=== PATIENT | male | born 1975 | race African-American/Black ===

== ENCOUNTER 2019-08-02 09:28 | Emergency (ER) | payer SELFPAY ==
--- NOTE | 2019-08-02 09:56 | EDM.PDOC ---
ED HPI GENERAL MEDICAL PROBLEM - General Chief Complaint: Chest Pain Stated Complaint: CHEST PRESSURE Time Seen by Provider: 08/02/19 09:30 Source of Information: Reports: Patient History Limitations: Reports: No Limitations - History of Present Illness INITIAL COMMENTS - FREE TEXT/NARRATIVE: 43-year-old male with vague chest pressure, migrating pain and pressure in the shoulders and legs and a mild headache. It's been going on for the last 24 hours and he became very anxious and concerned about his heart. He does have anxiety. No fevers or chills, no nausea or vomiting, no shortness of breath. Onset: Gradual Duration: Day(s): (1-2 days) Location: Reports: Generalized Left Chest Pain Score (Numeric/FACES): 5 - Related Data Allergies Allergy/AdvReac Type Severity Reaction Status Date / Time No Known Allergies Allergy Verified 08/02/19 09:37 Home Meds: Home Meds FLUoxetine HCl [Fluoxetine HCl] 1 tab PO DAILY 08/02/19 [History] Past Medical History HEENT History: Reports: Impaired Vision Cardiovascular History: Reports: Hypertension Respiratory History: Reports: Sleep Apnea Psychiatric History: Reports: Anxiety, Depression Social & Family History - Tobacco Use Smoking Status *Q: Light Tobacco Smoker Years of Tobacco use: 15 Packs/Tins Daily: 0.5 - Recreational Drug Use Recreational Drug Use: Yes Recreational Drug Type: Reports: Marijuana/Hashish Recreational Drug Use Frequency: Weekly ED ROS GENERAL - Review of Systems Review Of Systems: See Below Constitutional: Reports: Malaise. Denies: Fever, Chills Respiratory: Denies: Shortness of Breath Cardiovascular: Reports: Chest Pain (Mild pressure) GI/Abdominal: Denies: Nausea, Vomiting Musculoskeletal: Reports: Other (Generalized aching and pressure in his muscles) Neurological: Reports: Headache (Mild headache yesterday none today) ED EXAM, GENERAL - Physical Exam Exam: See Below Exam Limited By: No Limitations General Appearance: Alert, No Apparent Distress, Anxious Head: Atraumatic Neck: Supple Respiratory/Chest: No Respiratory Distress, Lungs Clear Cardiovascular: Regular Rate, Rhythm. No: Extra Beats GI/Abdominal: Soft, Non-Tender Extremities: Normal Inspection Neurological: Alert, Oriented Psychiatric: Normal Affect, Normal Mood Skin Exam: Warm, Dry EKG INTERPRETATION Rhythm: NSR Course - Vital Signs Last Recorded V/S: Last Vital Signs Temp 95.2 F L 08/02/19 09:34 Pulse 75 08/02/19 09:34 Resp 20 08/02/19 09:34 BP 150/79 H 08/02/19 09:34 Pulse Ox 96 08/02/19 09:34 - Orders/Labs/Meds Orders: Active Orders 24 hr Category Date Time Status EKG Documentation Completion [RC] ASDIRECTED Care 08/02/19 09:49 Active EKG 12 Lead [EK] Routine Ther 08/02/19 09:49 Ordered - Re-Assessments/Exams Free Text/Narrative Re-Assessment/Exam: 08/02/19 09:58 EKG was normal. Discussed with the patient some labs that should be obtained such as troponin and CBC but after the EKG was normal he was reassured and insisted on leaving. He will return if his symptoms are worsening. Departure - Departure Time of Disposition: 10:07 Disposition: Home, Self-Care 01 Clinical Impression: Atypical chest pain - Discharge Information Instructions: Nonspecific Chest Pain Referrals: PCP,None [Primary Care Provider] - Forms: ED Department Discharge Care Plan Goals: Activity and diet as tolerated, return anytime if worsening or concerns. Consider scheduling an appointment with your primary doctor for a regular physical sometime in the near future. - My Orders Last 24 Hours: My Active Orders 08/02/19 09:49 EKG Documentation Completion [RC] ASDIRECTED EKG 12 Lead [EK] Routine - Assessment/Plan Last 24 Hours: My Active Orders 08/02/19 09:49 EKG Documentation Completion [RC] ASDIRECTED EKG 12 Lead [EK] Routine
== END 2019-08-02 10:07 | disposition home or self-care (01) ==
LOC: JP.ED 09:28
DX: R07.89 Other chest pain (principal); I10 Essential (primary) hypertension; F17.210 Nicotine dependence, cigarettes, uncomplicated; F41.9 Anxiety disorder, unspecified; F32.9 Major depressive disorder, single episode, unspecified; Z79.899 Other long term (current) drug therapy
CPT/HCPCS: 99284-25